=== PATIENT | male | born 1985 | race Caucasian/White ===

== ENCOUNTER 2017-07-28 05:21 | Emergency (ER) | payer BC ==
[~2017-07-28] VITALS: Ht 188 cm; Wt 82.9 kg
[2017-07-28 05:30] VITALS: BP 157/81; PULSE 76; RESP 24; TEMP 98.4; O2SAT 99
[2017-07-28] MEDS ORDERED: SODIUM CHLOR 0.9% 1000 ML INJ 1,000 ML IV ONE (05:53)
--- NOTE | 2017-07-28 05:59 | PD ---
HPI Chief Complaint: Flank/Kidney Pain Time Seen by Provider: 05:47 Travel History International Travel<30 days: No Contact w/Intl Traveler<30days: No Traveled to known affect area: No History of Present Illness HPI The patient is a 31-year-old male with a history of kidney stones who complains of left flank pain for 2 days. It got worse at 8:30 tonight and he took some Motrin, 800 mg. He vomited twice. In the last 2 hours the pain has gotten much worse. He states he vomited twice. He comes from [place] and has no local urologist or primary care physician. The patient states he has had stenting before and laser treatment to break up a 7 mm stone in the past. 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) Immunizations Current: No Influenza Vaccination: No Social History Alcohol Use: No Tobacco Use: Yes (1 PPD) Substance Use: No Allergies-Medications (Allergen,Severity, Reaction): Coded Allergies: No Known Allergies (Unverified , 07/28/17) Reported Meds & Prescriptions Reported Meds & Active Scripts Active Ibuprofen 800 Mg Tab 800 Mg PO TID Percocet (Oxycodone-Acetaminophen) 7.5-325 mg Tab 1 Tab PO Q4H PRN Prochlorperazine Maleate 10 Mg Tab 10 Mg PO Q6H PRN Flomax (Tamsulosin HCl) 0.4 Mg Cap 0.4 Mg PO HS Review of Systems Except as stated in HPI: all other systems reviewed are Neg Physical Exam Narrative GENERAL: The patient is alert, oriented 3 in moderate to severe distress with his left flank discomfort. His vital signs show blood pressure 157/81 but are otherwise normal. SKIN: Focused skin assessment warm/dry. HEAD: Atraumatic. Normocephalic. EYES: Pupils equal and round. No scleral icterus. No injection or drainage. ENT: No nasal bleeding or discharge. Mucous membranes pink and moist. NECK: Trachea midline. No JVD. CARDIOVASCULAR: Regular rate and rhythm. No murmur appreciated. RESPIRATORY: No accessory muscle use. Clear to auscultation. Breath sounds equal bilaterally. GASTROINTESTINAL: Abdomen soft, with slight tenderness in the left flank to direct palpation. The abdomen is nondistended. Hepatic and splenic margins not palpable. No guarding or rebound is present. There is no tenderness or pain or the UVJ area. MUSCULOSKELETAL: No obvious deformities. No clubbing. No cyanosis. No edema. NEUROLOGICAL: Awake and alert. No obvious cranial nerve deficits. Motor grossly within normal limits. Normal speech. PSYCHIATRIC: Appropriate mood and affect; insight and judgment normal. Data Data Last Documented VS Vital Signs Date Time Temp Pulse Resp B/P (MAP) Pulse Ox O2 Delivery O2 Flow Rate FiO2 07/28/17 06:43 64 20 127/73 (91) 98 07/28/17 05:30 98.4 Orders Orders Complete Blood Count With Diff (07/28/17 05:53) Basic Metabolic Panel (Bmp) (07/28/17 05:53) Urinalysis - C+S If Indicated (07/28/17 05:53) Ct Abd/Pel W/O Iv Contrast (07/28/17 05:53) Ecg Monitoring (07/28/17 05:53) Iv Access Insert/Monitor (07/28/17 05:53) Ondansetron Inj (Zofran Inj) (07/28/17 06:00) Sodium Chloride 0.9% Flush (Ns Flush) (07/28/17 06:00) Sodium Chlor 0.9% 1000 Ml Inj (Ns 1000 M (07/28/17 05:53) Hydromorphone Pf Inj (Dilaudid Pf Inj) (07/28/17 06:00) Ketorolac Inj (Toradol Inj) (07/28/17 06:00) Tamsulosin (Flomax) (07/28/17 07:30) Labs Laboratory Tests Test 07/28/17 06:05 White Blood Count 7.3 TH/MM3 Red Blood Count 5.14 MIL/MM3 Hemoglobin 14.7 GM/DL Hematocrit 44.9 % Mean Corpuscular Volume 87.3 FL Mean Corpuscular Hemoglobin 28.6 PG Mean Corpuscular Hemoglobin Concent 32.8 % Red Cell Distribution Width 13.3 % Platelet Count 237 TH/MM3 Mean Platelet Volume 8.5 FL Neutrophils (%) (Auto) 64.6 % Lymphocytes (%) (Auto) 25.1 % Monocytes (%) (Auto) 7.2 % Eosinophils (%) (Auto) 2.2 % Basophils (%) (Auto) 0.9 % Neutrophils # (Auto) 4.7 TH/MM3 Lymphocytes # (Auto) 1.8 TH/MM3 Monocytes # (Auto) 0.5 TH/MM3 Eosinophils # (Auto) 0.2 TH/MM3 Basophils # (Auto) 0.1 TH/MM3 CBC Comment DIFF FINAL Differential Comment Blood Urea Nitrogen 12 MG/DL Creatinine 0.89 MG/DL Random Glucose 111 MG/DL Calcium Level 9.1 MG/DL Sodium Level 139 MEQ/L Potassium Level 3.8 MEQ/L Chloride Level 102 MEQ/L Carbon Dioxide Level 29.9 MEQ/L Anion Gap 7 MEQ/L Estimat Glomerular Filtration Rate 100 ML/MIN MDM Medical Decision Making Medical Screen Exam Complete: Yes Emergency Medical Condition: Yes Medical Record Reviewed: Yes Interpretation(s) There is a 3 mm stone on the left proximal ureter causing mild left hydronephrosis. No other stones are present. The CBC is normal. The basic metabolic profile is normal. Differential Diagnosis Left ureteral stone, Narrative Course The patient has a 3 mm left ureteral stone. He should pass this stone but it is in the proximal ureter and will cause some pain before he ultimately passes it. He will be given Flomax, Compazine, Percocet and Motrin. He says he'll go back to [place] in about a week and follow up with his urologist there. Diagnosis Primary Impression: Left ureteral calculus Additional Instructions: Take the Flomax 1 tablet daily. The Motrin also should be taken one tablet 3 times daily. The Percocet is as needed for pain and the Compazine as as needed for nausea. Follow-up as soon as possible with your urologist in [place]. It may be necessary to call from here to set up an appointment with him in [place]. Med/Other Pt SpecificInfo: Prescription(s) given Scripts Ibuprofen (Ibuprofen) 800 Mg Tab 800 MG PO TID, #33 TAB 0 Refills Prov: Jhonny Flor MD 07/28/17 Oxycodone-Acetaminophen (Percocet) 7.5-325 mg Tab 1 TAB PO Q4H Y for PAIN, #30 TAB 0 Refills Prov: Jhonny Flor MD 07/28/17 Prochlorperazine Maleate (Prochlorperazine Maleate) 10 Mg Tab 10 MG PO Q6H Y for NAUSEA OR VOMITING, #30 TAB 0 Refills Prov: Jhnony Flor MD 07/28/17 Tamsulosin (Flomax) 0.4 Mg Cap 0.4 MG PO HS for Manage Prostate Problems, #30 CAP 0 Refills Prov: Jhonny Flor MD 07/28/17 Disposition: 01 DISCHARGE HOME Condition: Stable Jhonny Flor MD Jul 28, 2017 05:59
[2017-07-28] MEDS ORDERED: KETOROLAC TROMETHAMINE 60 MG/2 ML (IM) VIAL IVP ONE (06:00)
[2017-07-28] MEDS ORDERED: HYDROmorphone HCL PF 1 MG/ML VIAL IM ONE (06:00)
[2017-07-28] MEDS ORDERED: SODIUM CHLORIDE 0.9% FLUSH 10 ML FLUSH IVF PRN (06:00)
[2017-07-28] MEDS ORDERED: ONDANSETRON HCL 4 MG/2 ML VIAL IV PUSH ONE (06:00)
[2017-07-28 06:21] LABS: AUTOMATED NEUTROPHIL # 4.7 TH/MM3 (1.8-7.7); BASOPHIL # 0.1 TH/MM3 (0-0.2); BASOPHIL % 0.9 % (0.0-2.0); EOSINOPHIL # 0.2 TH/MM3 (0-0.4); EOSINOPHIL % 2.2 % (0.0-4.0); HEMATOCRIT 44.9 % (39.0-51.0); HEMO FLAGS DIFF FINAL; LYMPH % 25.1 % (9.0-44.0); LYMPHOCYTE # 1.8 TH/MM3 (1.0-4.8); MEAN CELL VOLUME 87.3 FL (80.0-100.0); MEAN CORPUSCULAR HEMOGLOBIN 28.6 PG (27.0-34.0); MEAN CORPUSCULAR HGB CONC 32.8 % (32.0-36.0); MONO % 7.2 % (0.0-8.0); NEUT % 64.6 % (16.0-70.0); PLATELET COUNT 237 TH/MM3 (150-450); RED BLOOD COUNT 5.14 MIL/MM3 (4.50-5.90); RED CELL DISTRIBUTION WIDTH 13.3 % (11.6-17.2); WHITE BLOOD COUNT 7.3 TH/MM3 (4.0-11.0)
[2017-07-28 06:31] LABS: POTASSIUM 3.8 MEQ/L (3.5-5.1)
[2017-07-28 06:36] LABS: BICARBONATE 29.9 MEQ/L (21.0-32.0)
[2017-07-28 06:43] VITALS: BP 127/73; PULSE 64; RESP 20; O2SAT 98
--- NOTE | 2017-07-28 06:54 | RADRPT ---
EXAM DATE/TIME: 07/28/2017 06:21 [facility] COMPARISON: No previous studies available for comparison. INDICATIONS : Left flank pain for 2 days. Prior history of renal calculi ORAL CONTRAST: No oral contrast ingested. RADIATION DOSE: 10.20 CTDIvol (mGy) MEDICAL HISTORY : Renal calculi. SURGICAL HISTORY : Fusion, cervical. Renal stent placement and removal ENCOUNTER: Initial ACUITY: 2 days PAIN SCALE: 9/10 LOCATION: Left flank TECHNIQUE: Volumetric scanning of the abdomen and pelvis was performed. Using automated exposure control and ad justment of the mA and/or kV according to patient size, radiation dose was kept as low as reasonably achievable to obtain optimal diagnostic quality images. DICOM format image data is available electro nically for review and comparison. FINDINGS: LOWER LUNGS: The visualized lower lungs are clear. LIVER: Mild diffuse decreased density without lesion. There is no dilation of the biliary tree. No calcifi ed gallstones. SPLEEN: Normal size without lesion. PANCREAS: Within normal limits. KIDNEYS: Normal in size and shape. There is mild left hydronephrosis caused by a 3 mm stone in the left proxi mal ureter near the ureter pelvic junction. No other renal stones are present. ADRENAL GLANDS: Within normal limits. VASCULAR: There is no aortic aneurysm. BOWEL/MESENTERY: The stomach, small bowel, and colon demonstrate no acute abnormality. There is no free intraperitone al air or fluid. ABDOMINAL WALL: Within normal limits. RETROPERITONEUM: There is no lymphadenopathy. BLADDER: No wall thickening or mass. REPRODUCTIVE: Within normal limits. INGUINAL: There is no lymphadenopathy or hernia. MUSCULOSKELETAL: No acute abnormality. CONCLUSION: 1. There is a 3 mm stone in the left proximal ureter causing mild left hydronephrosis. No other renal stones are present. 2. Hepatic steatosis. Antonino Mays MD on July 28, 2017 at 6:49 Board Certified Radiologist. This report was verified electronically.
[2017-07-28] MEDS ORDERED: TAMS5CAP PO (07:23)
[2017-07-28] MEDS ORDERED: PERC7.5T13 PO (07:23)
[2017-07-28] MEDS ORDERED: IBUP1TAB7 PO (07:23)
[2017-07-28] MEDS ORDERED: PROC10TA PO (07:23)
[2017-07-28] MEDS ORDERED: TAMSULOSIN HCL 0.4 MG CAP PO ONE (07:30)
== END 2017-07-28 07:59 | disposition home or self-care (01) ==
LOC: PHED 05:21
DX: N13.2 Hydronephrosis with renal and ureteral calculous obstruction (principal); K76.0 Fatty (change of) liver, not elsewhere classified; Z87.442 Personal history of urinary calculi; F17.210 Nicotine dependence, cigarettes, uncomplicated; Z79.899 Other long term (current) drug therapy
CPT/HCPCS: 74176; 80048; 85025; 96361; 96372; 96374; 99285; J1170; J1885; J2405; J7030